=== PATIENT | male | born 1990 | race Caucasian/White ===

== ENCOUNTER 2017-09-12 12:02 | Emergency (ER) | payer OTHER ==
[~2017-09-12] VITALS: Ht 170.2 cm; Wt 86.2 kg
[~2017-09-12 12:02] MED LIST: CIPROFLOXACIN500 M1 PO; NAPROSYN500 MG PO; NOHOMEMEDICATIONS; PHENERGAN 25 MG25 M1 PO; SENEXON-S TABL1 EACH PO; SUBOXONE 8 MG-1 EAC2 SL; ULTRAM 50MG TAB50 MG PO
[2017-09-12 12:39] LABS: URINE BILIRUBIN NEGATIVE (Negative); URINE BLOOD NEGATIVE (Negative); URINE CLARITY CLEAR; URINE COLOR YELLOW; URINE GLUCOSE-RANDOM NEGATIVE (Negative); URINE KETONES NEGATIVE (Negative); URINE LEUKOCYTES-REFLEX NEGATIVE (Negative); URINE NITRITE-REFLEX NEGATIVE (Negative); URINE PROTEIN NEGATIVE (Negative); URINE SPECIFIC GRAVITY >= 1.030 (1.005-1.030); URINE UROBILINOGEN 0.2 E.U./dl (0.2-1.0)
[2017-09-12 12:47] LABS: AMP/METHAMP POSITIVE (Negative); BARBITURATES Negative (Negative); BENZODIAZEPINES Negative (Negative); COCAINE Negative (Negative); METHADONE Negative (Negative); OPIATES Negative (Negative); PCP Negative (Negative); THC POSITIVE (Negative)
[2017-09-12 13:01] LABS: CALCIUM 9.5 mg/dL (8.5-10.1); CREATININE 0.8 mg/dL (0.6-1.3); POTASSIUM 4.5 mmol/L (3.5-5.1)
[2017-09-12 13:05] LABS: ALBUMIN 3.8 g/dL (3.4-5.0); TOTAL BILIRUBIN 0.3 mg/dL (<0.1-1.0); TOTAL PROTEIN 7.7 g/dL (6.4-8.2)
[2017-09-12] MEDS ORDERED: ZOFRAN ODT4 MG PO (13:17)
[2017-09-12 13:28] VITALS: BP 150/92
== END 2017-09-12 13:31 | disposition home or self-care (01) ==
LOC: M.ERS 12:02
PROVIDERS: Physician Assistant
DX: F15.129 Other stimulant abuse with intoxication, unspecified (principal); F12.10 Cannabis abuse, uncomplicated; R11.2 Nausea with vomiting, unspecified

== ENCOUNTER 2018-05-09 12:28 | Emergency (ER) | payer OTHER ==
[~2018-05-09] VITALS: Ht 167.6 cm; Wt 81.7 kg
[~2018-05-09 12:28] MED LIST changes: +ZOFRAN ODT4 MG PO
[2018-05-09] MEDS ORDERED: DOXYCYCLINE MO100 M1 PO (13:19)
[2018-05-09 14:03] VITALS: BP 121/66
== END 2018-05-09 14:04 | disposition home or self-care (01) ==
LOC: M.ERS 12:28
DX: L02.413 Cutaneous abscess of right upper limb (principal); I10 Essential (primary) hypertension

== ENCOUNTER 2018-12-01 12:33 | Emergency (ER) | payer OTHER ==
[~2018-12-01] VITALS: Ht 170.2 cm; Wt 90.7 kg
[~2018-12-01 12:33] MED LIST changes: +DOXYCYCLINE MO100 M1 PO
[2018-12-01] MEDS ORDERED: CLONAZEPAM 1 MG1 M1 PO ×2 (12:42)
[2018-12-01 14:17] LABS: CALCIUM 8.7 mg/dL (8.5-10.1); CREATININE 0.8 mg/dL (0.6-1.3); POTASSIUM 4.8 mmol/L (3.5-5.1)
[2018-12-01 14:22] LABS: ALBUMIN 3.8 g/dL (3.4-5.0); TOTAL BILIRUBIN 0.3 mg/dL (<0.1-1.0); TOTAL PROTEIN 7.1 g/dL (6.4-8.2)
[2018-12-01 15:45] VITALS: BP 152/91
--- NOTE | 2018-12-03 13:50 | EKG ---
[place] [address] ELECTROCARDIOGRAM REPORT Name: LEONELCHANDNI [id number] Admission: 12/01/18 Attend Phys: Discharge: 12/01/18 Date of : [birth year] Report #: [id number] THIS REPORT FOR: //name// [facility] ED Test Date: 2018-12-01 Test Time: 12:36:08 Pat Name: CHANDNI CASTANEDA Department: Room: Gender: M [employer]: LASHON : 1990 Requested By: Eloina Obando Order Number: [id number] Gonzalo MD: Jorge Guzman Measurements Intervals [place] Rate: 92 P: 22 DE: 176 QRS: 16 QRSD: 87 T: 40 QT: 339 QTc: 420 Interpretive Statements Sinus rhythm Compared to ECG 03/04/2013 15:49:58 ST (T wave) deviation no longer present Electronically Signed On 12-03-2018 13:49:44 CDT by Jorge Guzman [email or web address] <ELECTRONICALLY SIGNED> By: Jorge Guzman MD, [facility] 12/03/18 1349 1236 1236 Jorge Guzman MD, FACC /EPI
== END 2018-12-01 15:47 | disposition home or self-care (01) ==
LOC: M.ERS 12:33
PROVIDERS: Personal Emergency Response Attendant
DX: T40.1X1A Poisoning by heroin, accidental (unintentional), initial encounter (principal); I10 Essential (primary) hypertension; F17.210 Nicotine dependence, cigarettes, uncomplicated; Y92.89 Other specified places as the place of occurrence of the external cause